=== PATIENT | male | born 1970 | race American Indian/Alaskan Native ===

== ENCOUNTER 2016-09-24 21:00 | Emergency (ER) | payer OTHER ==
[2016-09-24] MEDS ORDERED: BENADRYL ONE (21:10)
[2016-09-24] MEDS ORDERED: PEPCID ONE (21:11)
[2016-09-24] MEDS ORDERED: BENADRYL IM ONE (21:12)
[2016-09-24] MEDS ORDERED: NACL 0.9% 1000 ML 1,000 ML IV ONE (21:30)
[2016-09-24] MEDS ORDERED: PEPCID PO ONE (21:32)
[2016-09-24] MEDS ORDERED: PEPCID IV ONE (21:39)
[2016-09-24 22:09] LABS: Basophils % (Auto) 0.3 % (0.0-1.8); Eosinophils % (Auto) 0.3 % (0.0-4.3); Hematocrit 46.9 % (35.5-45.6); Hemoglobin 15.7 gm/dl (11.8-15.2); Mean Corpuscular HGB Conc 34 % (32-34); Mean Corpuscular Hemoglobin 29 pg (28-32); Mean Corpuscular Volume 87 fl (84-94); Platelet Count 298 K/mm3 (140-440); Red Blood Count 5.37 M/mm3 (3.65-5.03); Red Cell Distribution Width 14.2 % (13.2-15.2); White Blood Count 11.2 K/mm3 (4.5-11.0)
[2016-09-24] MEDS ORDERED: NACL 0.9% 1000 ML 1,000 ML ONE (22:15)
[2016-09-24 22:22] LABS: Creatine Kinase MB 2.3 ng/mL (0.0-4.0)
[2016-09-24 22:23] LABS: Anion Gap 15 mmol/L; Blood Urea Nitrogen 13 mg/dL (9-20); Calcium 9.7 mg/dL (8.4-10.2); Carbon Dioxide 27 mmol/L (22-30); Chloride 103.5 mmol/L (98-107); Creatine Kinase 299 units/L (55-170); Glucose 141 mg/dL (75-100); Potassium 3.1 mmol/L (3.6-5.0); Sodium 142 mmol/L (137-145)
[2016-09-24] MEDS ORDERED: NITRO-BID 2% TP ONE (22:58)
[2016-09-24] MEDS ORDERED: ASPIRIN PO ONE (22:59)
--- NOTE | 2016-09-24 23:02 | Emergency Department Report ---
HPI - General Chief Complaint: Animal Bite Time Seen by Provider: 09/24/16 21:38 - HPI HPI: Room 21 The patient is a 46-year-old male presenting with a chief complaint of bee stings and chest pain. The patient states he was working in the yard when he suddenly felt a bee sting him in his right lower extremity. Patient states she saw the being I went to take off work and after removing his clothes he saw several the bees stung him in multiple air. The patient states she started "feeling bad" and developed shortness of breath. Patient states she began to feel weak. The patient states she has had intermittent substernal chest pain described as a discomfort. In the ED while being triaged the patient states he felt short of breath then had a syncopal episode Location: [see above] Duration: [see above] Quality: "Discomfort" Severity: Moderate Modifying factors: [see above] Context: [see above] Mode of transportation: [not driving] ED Past Medical Hx - Past Medical History Previous Medical History?: No - Surgical History Past Surgical History?: No - Family History Family history: no significant - Social History Smoking Status: Never Smoker Substance Use Type: None (denies illicit drug use), Alcohol (occasional) ED Review of Systems ROS: Stated complaint: MULTIPLE BEE STINGS Other details as noted in HPI Comment: All other systems reviewed and negative Constitutional: weakness. denies: chills, fever Eyes: denies: eye pain, eye discharge, vision change ENT: denies: ear pain, throat pain Respiratory: shortness of breath Cardiovascular: chest pain Endocrine: no symptoms reported Gastrointestinal: denies: abdominal pain, nausea, diarrhea Genitourinary: denies: urgency, dysuria Musculoskeletal: denies: back pain, joint swelling, arthralgia Skin: lesions (bee stings) Neurological: denies: headache, weakness, paresthesias Psychiatric: denies: anxiety, depression Hematological/Lymphatic: denies: easy bleeding, easy bruising Physical Exam - Physical Exam Vital Signs: Vital Signs 09/24/16 09/24/16 09/24/16 21:04 21:20 21:25 Temperature 98.3 F Pulse Rate 119 H 95 H 77 Respiratory 26 H 22 13 Rate Blood Pressure 146/95 Blood Pressure 96/61 [Left] O2 Sat by Pulse 97 98 98 Oximetry 09/24/16 09/24/16 09/24/16 21:30 21:38 21:41 Temperature Pulse Rate 77 75 73 Respiratory 16 15 20 Rate Blood Pressure 114/74 114/74 Blood Pressure 122/80 [Left] O2 Sat by Pulse 95 94 98 Oximetry 09/24/16 09/24/16 09/24/16 21:51 22:00 22:11 Temperature Pulse Rate 76 70 75 Respiratory 13 10 L 16 Rate Blood Pressure 124/72 135/86 135/86 Blood Pressure [Left] O2 Sat by Pulse 98 98 98 Oximetry 09/24/16 09/24/16 09/24/16 22:21 22:30 22:41 Temperature Pulse Rate 69 77 70 Respiratory 14 19 13 Rate Blood Pressure 127/83 117/93 117/93 Blood Pressure [Left] O2 Sat by Pulse 100 100 99 Oximetry 09/24/16 22:57 Temperature Pulse Rate 69 Respiratory 19 Rate Blood Pressure Blood Pressure 119/82 [Left] O2 Sat by Pulse 97 Oximetry Physical Exam: GENERAL: The patient is well-developed well-nourished male lying supine on stretcher appearing to be in mild discomfort. [] HEENT: Normocephalic. Atraumatic. Extraocular motions are intact. Patient has moist mucous membranes. NECK: Supple. Trachea midline. No stridor CHEST/LUNGS: Clear to auscultation. There is no respiratory distress noted. HEART/CARDIOVASCULAR: Regular. There is no tachycardia. There is no gallop rub or murmur. ABDOMEN: Abdomen is soft, nontender. Patient has normal bowel sounds. There is no abdominal distention. SKIN: There is a local irritations/erythema consistent with bee stings in the right lower extremity and right thorax point. No stingers are seen in place. There is no diaphoresis. NEURO: The patient is awake, alert, and oriented. The patient is cooperative. The patient has normal speech MUSCULOSKELETAL: There is no evidence of acute injury. ED Course Vital Signs 09/24/16 09/24/16 09/24/16 21:04 21:20 21:25 Temperature 98.3 F Pulse Rate 119 H 95 H 77 Respiratory 26 H 22 13 Rate Blood Pressure 146/95 Blood Pressure 96/61 [Left] O2 Sat by Pulse 97 98 98 Oximetry 09/24/16 09/24/16 09/24/16 21:30 21:38 21:41 Temperature Pulse Rate 77 75 73 Respiratory 16 15 20 Rate Blood Pressure 114/74 114/74 Blood Pressure 122/80 [Left] O2 Sat by Pulse 95 94 98 Oximetry 09/24/16 09/24/16 09/24/16 21:51 22:00 22:11 Temperature Pulse Rate 76 70 75 Respiratory 13 10 L 16 Rate Blood Pressure 124/72 135/86 135/86 Blood Pressure [Left] O2 Sat by Pulse 98 98 98 Oximetry 09/24/16 09/24/16 09/24/16 22:21 22:30 22:41 Temperature Pulse Rate 69 77 70 Respiratory 14 19 13 Rate Blood Pressure 127/83 117/93 117/93 Blood Pressure [Left] O2 Sat by Pulse 100 100 99 Oximetry 09/24/16 22:57 Temperature Pulse Rate 69 Respiratory 19 Rate Blood Pressure Blood Pressure 119/82 [Left] O2 Sat by Pulse 97 Oximetry ED Medical Decision Making - Lab Data Result diagrams: 09/24/16 21:44 09/24/16 21:44 Laboratory Tests 09/24/16 09/24/16 21:44 21:44 WBC 11.2 H RBC 5.37 H Hgb 15.7 H Hct 46.9 H MCV 87 MCH 29 MCHC 34 RDW 14.2 Plt Count 298 Lymph % (Auto) 21.0 Wilbarger % (Auto) 5.1 Eos % (Auto) 0.3 Baso % (Auto) 0.3 Lymph # 2.3 Wilbarger # 0.6 Eos # 0.0 Baso # 0.0 Seg Neutrophils % 73.3 H Seg Neutrophils # 8.2 H Sodium 142 Potassium 3.1 L Chloride 103.5 Carbon Dioxide 27 Anion Gap 15 BUN 13 Creatinine 1.0 Estimated GFR > 60 BUN/Creatinine Ratio 13.00 Glucose 141 H Calcium 9.7 Total Creatine Kinase 299 H CK-MB (CK-2) 2.3 CK-MB (CK-2) Rel Index 0.7 Troponin T < 0.010 - EKG Data -: EKG Interpreted by Me EKG shows normal: sinus rhythm Rate: normal - EKG Data When compared to previous EKG there are: previous EKG unavailable Interpretation: nonspecific ST-T wave jamie (T-wave inversion in lead 3, V3, V4, V5) - Radiology Data Radiology results: image reviewed (chest x-ray, lateral soft tissue neck x-ray) interpreted by me: Chest x-ray-no focal infiltrates, no pneumothorax Lateral soft tissue neck x-ray-no prevertebral swelling, no evidence of epiglottitis - Differential Diagnosis ACS, allergic reaction, Hymenoptera envenomation Critical care attestation.: If time is entered above; I have spent that time in minutes in the direct care of this critically ill patient, excluding procedure time. ED Disposition Clinical Impression: Allergic reaction, Chest pain, T wave inversion in EKG, Hymenoptera sting Disposition: OP ADMIT IP TO THIS HOSP Is pt being admited?: Yes Does the pt Need Aspirin: Yes Condition: Fair Instructions: Chest Pain (ED) Referrals: PRIMARY CARE, [Primary Care Provider] - 3-5 Days Time of Disposition: 23:11 (hospitalist paged)
--- NOTE | 2016-09-24 23:48 | History and Physical Report ---
Medications and Allergies Allergies Allergy/AdvReac Type Severity Reaction Status Date / Time amoxicillin trihydrate Allergy Rash Verified 09/24/16 21:04 [From Augmentin] potassium clavulanate Allergy Rash Verified 09/24/16 21:04 [From Augmentin] Exam - Constitutional Vitals: Temp Pulse Resp BP Pulse Ox 98.3 F 71 21 124/88 96 09/24/16 21:04 09/24/16 23:11 09/24/16 23:11 09/24/16 23:11 09/24/16 23:11 Results - Labs CBC & Chem 7: 09/24/16 21:44 09/24/16 21:44 Labs: Abnormal lab results 09/24/16 09/24/16 Range/Units 21:44 21:44 WBC 11.2 H (4.5-11.0) K/mm3 RBC 5.37 H (3.65-5.03) M/mm3 Hgb 15.7 H (11.8-15.2) gm/dl Hct 46.9 H (35.5-45.6) % Seg Neutrophils % 73.3 H (40.0-70.0) % Seg Neutrophils # 8.2 H (1.8-7.7) K/mm3 Potassium 3.1 L (3.6-5.0) mmol/L Glucose 141 H (75-100) mg/dL Total Creatine Kinase 299 H (55-170) units/L
[2016-09-25 00:41] VITALS: BP 135/83
--- NOTE | 2016-09-25 01:12 | Event Note ---
Date: 09/25/16 PATIENT REFUSE ADMISSION
--- NOTE | 2016-09-25 09:23 | XRay Report ---
X-RAY SOFT TISSUE NECK TWO VIEWS: 09/24/16 CLINICAL: Shortness of breath after bee sting. FINDINGS: Normal airway and soft tissues. The epiglottis is normal. No mass or soft tissue edema. No soft tissue air or mediastinal air. Mild degenerative changes in the spine. IMPRESSION: Negative soft tissues.
--- NOTE | 2016-09-25 09:23 | XRay Report ---
AP CHEST : 09/24/16 21:00:00 CLINICAL: Chest pain and shortness of breath after the staining. COMPARISON:None FINDINGS: Normal heart and pulmonary vessels. The lungs are normally expanded and clear. The bones and soft tissues are unremarkable. IMPRESSION: Normal chest.
== END 2016-09-25 00:42 | disposition left against medical advice (07) ==
LOC: ED 21:00
DX: R07.2 Precordial pain (principal); T63.441A Toxic effect of venom of bees, accidental (unintentional), initial encounter; R94.31 Abnormal electrocardiogram [ECG] [EKG]
CPT/HCPCS: 36415; 70360; 71010; 80048; 82550; 82553; 84484; 85025; 93005; 93010; 96361; 96372; 96374; 99284; J1200; J2930; J7030

== ENCOUNTER 2018-09-28 09:27 | Emergency (ER) | payer OTHER ==
[2018-09-28 09:46] VITALS: BP 179/104
[2018-09-28] MEDS ORDERED: DECADRON IM ONE (10:03)
--- NOTE | 2018-09-28 10:08 | Emergency Department Report ---
ED General Adult HPI - General Chief complaint: Animal Bite Stated complaint: BEE STING Time Seen by Provider: 09/28/18 09:43 Source: patient Mode of arrival: Ambulatory Limitations: No Limitations - History of Present Illness Initial comments: Patient presents to the emergency department for continued swelling of his right hand and a warm status post a bee sting yesterday. 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 Patient did treat the bee sting with Benadryl. Patient denies swallowing shortness of breath. -: Sudden Location: upper extremity Consistency: constant Improves with: none Worsens with: none Associated Symptoms: denies other symptoms - Related Data Previous Rx's Medication Instructions Recorded Last Taken Type Famotidine [Pepcid] 20 mg PO BID #6 tablet 09/25/16 Unknown Rx Prednisone [predniSONE 10 mg 10 mg PO .TAPER #1 tab.ds.pk 09/25/16 Unknown Rx (6-Day Pack, 21 Tabs)] diphenhydrAMINE [Benadryl CAP] 50 mg PO Q6H #12 capsule 09/25/16 Unknown Rx EPINEPHrine [Epipen 2-Milton] 0.3 mg IJ ONCE PRN #1 auto.injct 09/28/18 Unknown Rx predniSONE [Deltasone] 20 mg PO DAILY #15 tablet 09/28/18 Unknown Rx Allergies Allergy/AdvReac Type Severity Reaction Status Date / Time amoxicillin trihydrate Allergy Rash Verified 09/28/18 09:29 [From Augmentin] potassium clavulanate Allergy Rash Verified 09/28/18 09:29 [From Augmentin] ED Review of Systems ROS: Stated complaint: BEE STING Other details as noted in HPI Comment: All other systems reviewed and negative Constitutional: denies: chills, fever Eyes: denies: eye pain, eye discharge, vision change ENT: denies: ear pain, throat pain Respiratory: denies: cough, shortness of breath, wheezing Cardiovascular: denies: chest pain, palpitations Endocrine: no symptoms reported Gastrointestinal: denies: abdominal pain, nausea, diarrhea Genitourinary: denies: urgency, dysuria Musculoskeletal: denies: back pain, joint swelling, arthralgia Skin: denies: rash, lesions Neurological: denies: headache, weakness, paresthesias Psychiatric: denies: anxiety, depression Hematological/Lymphatic: denies: easy bleeding, easy bruising ED Past Medical Hx - Past Medical History Hx Hypertension: Yes Additional medical history: high cholesterol - Surgical History Additional Surgical History: shoulder - Social History Smoking Status: Never Smoker Substance Use Type: Alcohol - Medications Home Medications: Home Medications Medication Instructions Recorded Confirmed Last Taken Type Famotidine [Pepcid] 20 mg PO BID #6 tablet 09/25/16 Unknown Rx Prednisone [predniSONE 10 mg 10 mg PO .TAPER #1 tab.ds.pk 09/25/16 Unknown Rx (6-Day Pack, 21 Tabs)] diphenhydrAMINE [Benadryl CAP] 50 mg PO Q6H #12 capsule 09/25/16 Unknown Rx EPINEPHrine [Epipen 2-Milton] 0.3 mg IJ ONCE PRN #1 auto.injct 09/28/18 Unknown Rx predniSONE [Deltasone] 20 mg PO DAILY #15 tablet 09/28/18 Unknown Rx ED Physical Exam - General Limitations: No Limitations General appearance: alert, in no apparent distress - Head Head exam: Present: atraumatic, normocephalic - Eye Eye exam: Present: normal appearance - ENT ENT exam: Present: mucous membranes moist - Neck Neck exam: Present: normal inspection - Respiratory Respiratory exam: Present: normal lung sounds bilaterally. Absent: respiratory distress - Cardiovascular Cardiovascular Exam: Present: regular rate, normal rhythm. Absent: systolic murmur, diastolic murmur, rubs, gallop - Rectal Rectal exam: Present: deferred - Extremities Exam Extremities exam: Present: normal inspection, other (swelling to right hand and normal) - Back Exam Back exam: Present: normal inspection - Neurological Exam Neurological exam: Present: alert, oriented X3 - Psychiatric Psychiatric exam: Present: normal affect, normal mood - Skin Skin exam: Present: warm, dry, intact, normal color. Absent: rash ED Course Vital Signs 09/28/18 09:34 Temperature 97.9 F Pulse Rate 58 L Respiratory 17 Rate Blood Pressure 179/104 O2 Sat by Pulse 99 Oximetry Critical care attestation.: If time is entered above; I have spent that time in minutes in the direct care of this critically ill patient, excluding procedure time. ED Disposition Clinical Impression: Bee sting allergy, Bee sting reaction Disposition: DC-01 TO HOME OR SELFCARE Is pt being admited?: No Does the pt Need Aspirin: No Condition: Stable Instructions: Insect Bite or Sting (ED) Additional Instructions: return if worse Prescriptions: EPINEPHrine [Epipen 2-Milton] 0.3 mg IJ ONCE PRN #1 auto.injct PRN Reason: Allergic Reaction Referrals: COLE ARIZMENDI MD [Primary Care Provider] - 3-5 Days NENA GARCIA MD [Staff Physician] - 3-5 Days Time of Disposition: 10:08
== END 2018-09-28 10:24 | disposition home or self-care (01) ==
LOC: ED 09:27
DX: T63.441A Toxic effect of venom of bees, accidental (unintentional), initial encounter (principal); I10 Essential (primary) hypertension; E78.00 Pure hypercholesterolemia, unspecified; Z88.1 Allergy status to other antibiotic agents; Z88.8 Allergy status to other drugs, medicaments and biological substances; Z79.899 Other long term (current) drug therapy; Y92.89 Other specified places as the place of occurrence of the external cause
CPT/HCPCS: 96372; 99282; J1100